=== PATIENT | female | born 1950 | race Caucasian/White ===

== ENCOUNTER 2017-03-07 06:09 | Day surgery (SDC) | payer OTHER ==
[2017-03-06 11:13] LABS: BASOPHILS 0.9 % (0-2); EOSINOPHILS 3.5 % (0-7); HEMATOCRIT 40.5 % (36.0-48.0); HEMOGLOBIN 13.1 g/dL (12-16); IMMATURE GRANULOCYTES 0.4 % (0-5); LYMPHOCYTES 32.3 % (15-50); MCH 28.5 pg (26.0-34.0); MCHC 32.3 g/dL (31.0-37.0); MCV 88.2 fL (80.0-100.0); MEAN PLATELET VOLUME 9.5 fL (7.4-10.4); MONOCYTES 9.9 % (2-11); PLATELET COUNT 253 10x3/uL (130-400); RBC 4.59 10x6/uL (4.00-5.40); RDW 14.4 % (11.5-14.5); WBC 5.7 10x3/uL (4.8-10.8)
[2017-03-06 11:27] LABS: APTT 27.4 SECONDS (22.8-39.4); INR 0.93 (0.85-1.17); PROTIME 12.4 SECONDS (11.6-15.0)
[2017-03-06 11:29] LABS: ANION GAP 12.3 mmol/L (8-16); CALCIUM 8.9 mg/dL (8.5-10.1); CARBON DIOXIDE 26.7 mmol/L (21.0-32.0); CREATININE - SERUM 0.9 mg/dL (0.6-1.3)
[~2017-03-07] VITALS: Ht 157.5 cm; Wt 101.2 kg
--- NOTE | ~2017-03-07 | OP ---
PATIENT NAME: MALIK STOREY MEDICAL RECORD: [id number] :54 LOCATION:D.OPS ADMISSION DATE: SURGEON: JAYME MANNING MD DATE OF OPERATION: 03/07/2017 PREOPERATIVE DIAGNOSES: 1. Patellofemoral syndrome of the right knee. 2. Medial meniscus tear of the right knee. POSTOPERATIVE DIAGNOSES: 1. Patellofemoral syndrome of the right knee. 2. Medial meniscus tear of the right knee. PROCEDURE: 1. Right knee arthroscopy with arthroscopic partial medial meniscectomy. 2. Arthroscopic lateral release. SURGEON: Jayme Manning MD ANESTHESIA: General. INTRAOPERATIVE COMPLICATIONS: None. SUMMARY OF PATHOLOGIC FINDINGS: The patient did indeed have severe patellofemoral syndrome with a complex tear of the posterior horn of the medial meniscus. OPERATIVE SUMMARY IN DETAIL: After obtaining the appropriate preoperative orthopedic surgery consent as well as anesthetic consultation, evaluation and clearance, the patient was brought to the operating room and placed on the operating table in supine position. After general laryngeal mask was administered, tourniquet was placed about the proximal aspect of the right lower extremity. Right lower extremity was then prepped and draped in routine sterile fashion. The leg was elevated and exsanguinated, tourniquet inflated to 350 mmHg. Routine inferolateral portal was established followed by superomedial portal and inferomedial portal. Diagnostic arthroscopy showed the patient had a complex tear of the posterior horn of medial meniscus. This was debrided back to stable meniscal elements using the arthroscopic resector as well as the meniscotomes. A good stable meniscal rim remained without substantial amount of arthritis in the medial compartment. The lateral patellar facet, however, had some grade II and III chondromalacia and a very lateral riding facet. Under direct arthroscopic visualization, the Marsteller tissue ablation system was then utilized to release the lateral retinaculum all the way to the inferolateral portal. Having completed this, arthroscopy portals were closed in routine interrupted fashion using 4-0 Prolene. Before sterile dressings were applied, the knee was insufflated with 30 cc of 0.25% Marcaine with epinephrine and 40 mg of Depo-Medrol. Arthroscopy portals were closed in routine interrupted fashion. Sterile dressings were applied. The patient was awakened, taken to recovery in stable condition. All final needle and sponge counts were correct. TRANSINT:[id number] Voice Confirmation ID: [id number] DOCUMENT ID: [id number] OPERATIVE REPORT [id number] MALIK STOREY MD, JAYME MOYER CC: [id number] DICTATION DATE: 03/13/17529 DENTAL CREAM MAKER: 03/13/17 1509 [facility] 03/07/17 [place] [id number] [place] [id number]
[~2017-03-07 06:09] MED LIST: LEVOTHYROXINE125 MCG PO; LISINOPRIL-HCTZ1 TA2 PO; MOBIC7.5 MG PO; VITAMIN D31000 UNIT PO
[2017-03-07 09:02] VITALS: BP 137/80; Ht 157.5 cm; Wt 101.2 kg
[2017-03-07] MEDS ORDERED: HYDROCODONE-APA1 TAB PO (10:28)
--- NOTE | 2017-03-07 16:43 | NUR ---
C/O NAUSEA ZOFRAN 4 MG IV GIVEN 1300 STILL NAUSEA BUT GETTING BETTER 1330 IV DC WITH CATHER TIP INTACT
== END 2017-03-07 14:00 | disposition home or self-care (01) ==
LOC: D.OPS 06:09 → D.PAN 09:00 → D.OPS 09:30 → D.PAN 03-11 08:50 → D.OPS 03-11 14:00 → D.PAN 03-11 14:00
PROVIDERS: Anesthesiology
DX: M22.2X1 Patellofemoral disorders, right knee (principal); I10 Essential (primary) hypertension; K21.9 Gastro-esophageal reflux disease without esophagitis; E03.9 Hypothyroidism, unspecified; Z01.812 Encounter for preprocedural laboratory examination